=== PATIENT | female | born 1950 | race Caucasian/White ===

== ENCOUNTER 2018-05-05 10:59 | Emergency (ER) | payer MEDICARE, OTHER ==
[2018-05-05 12:11] LABS: #Basophils 0.1 thou/uL (0.0-0.2); #Lymphocytes 1.1 thou/uL (1.20-3.40); #Monocytes 1.4 thou/uL (0.11-0.59); #Neutrophils 6.9 thou/uL (1.40-6.50); %Basophils 1.4 % (0.0-1.0); %Lymphocytes 11.8 % (21.0-51.0); %Monocytes 14.7 % (0.0-10.0); %Neutrophils 72.1 % (42.0-75.0); Hemoglobin 10.9 g/dL (12.0-16.0); Mean Corpuscular HGB CONC 33.6 g/dL (32.0-36.0); Mean Corpuscular Hemoglobin 28.4 pg (27.0-31.0); Mean Corpuscular Volume 84.6 fL (78.0-98.0); Mean Platelet Volume 6.1 fL (7.4-10.4); Platelet Count 269 thou/uL (130-400); RBC Distribution Width 13.2 % (11.5-14.5); Red Blood Cell (RBC) Count 3.83 mill/uL (4.20-5.40); White Blood Cell (WBC) Count 9.6 thou/uL (4.8-10.8)
[2018-05-05 12:12] LABS: Bilirubin Negative (Negative); Blood, Urine Moderate (Negative); Clarity Cloudy (Clear); Glucose, Urine (Dipstick) Negative (Negative); Leukocyte Small (Negative); Nitrite Positive (Negative); Protein, Urine (Dipstick) 30 mg/dL (Neg-Trace); Urobilinogen 0.2 mg/dL (0.2-1.0)
[2018-05-05 12:19] LABS: Bacteria/HPF 4+ HPF (None Seen)
[2018-05-05 12:21] LABS: Anion Gap 16 mmol/L (10-20); BUN (Urea Nitrogen) 20 mg/dL (9.8-20.1); Calc. Creatinine Clearance 0 mL/min (70-130); Calcium 10.1 mg/dL (7.8-10.44); Carbon Dioxide 26 mmol/L (23-31); Chloride 102 mmol/L (98-107); Estimated GFR-MDRD 83; Glucose 103 mg/dL (80-115); Potassium 4.6 mmol/L (3.5-5.1); Sodium 139 mmol/L (136-145)
--- NOTE | 2018-05-05 14:05 | RAD ---
LEFT HIP 3 VIEWS: Date: 05/05/18 INDICATION: Left hip pain. FINDINGS: There is a left hip prosthesis. The components appear in adequate position. The alignment of the femo ral and acetabular components is slightly asymmetric, although I do not confirm dislocation. No acute fracture identified. IMPRESSION: I cannot exclude mild subluxation of the hip prosthesis. No definite dislocation and no evidence of a cute fracture. POS: [facility]
--- NOTE | 2018-05-05 14:06 | RAD ---
AP PELVIS: Date: 05/05/18 HISTORY: Pain left hip. FINDINGS: Left hip prosthesis is noted. Components appear adequately positioned in this AP projection. No acute fracture identified. IMPRESSION: No acute abnormality identified. POS: [facility]
== END 2018-05-05 12:53 | disposition home or self-care (01) ==
LOC: SCSER 10:59
DX: M25.552 Pain in left hip (principal); N39.0 Urinary tract infection, site not specified; G80.9 Cerebral palsy, unspecified; G40.909 Epilepsy, unspecified, not intractable, without status epilepticus; F79 Unspecified intellectual disabilities
CPT/HCPCS: 72170; 80048; 81003; 81015; 85025; 87077; 87086; 87186